=== PATIENT | female | born 1955 | race Caucasian/White ===

== ENCOUNTER 2021-10-23 11:43 | Outpatient (CLI) | payer MEDICAID, SELFPAY ==
[2021-10-23 21:34] LABS: Chloride* 103 mmol/L (96-114); Potassium* 4.9 mmol/L (3.6-5.1); Sodium* 138 mmol/L (135-149)
[2021-10-23 21:36] LABS: Cholesterol* 202 mg/dL (90-199); Creatinine* 0.7 mg/dL (0.5-1.5); Estimated Glomerular Filt Rate 97 ml/min
[2021-10-23 21:37] LABS: Blood Urea Nitrogen* 19 mg/dL (7-30); Calcium* 9.8 mg/dL (8.4-10.6); Carbon Dioxide* 29 mmol/L (20-32); Glucose* 96 mg/dL (60-115); HDL Cholesterol* 69 mg/dL (>=50); LDL Cholesterol Calculated 112 mg/dL (<100); Triglycerides* 104 mg/dL (40-149)
== END 2021-10-23 11:44 | disposition home or self-care (01) ==
PROVIDERS: PCP Family Medicine; Visit Provider Family Medicine
DX: Z00.00 Encounter for general adult medical examination without abnormal findings (principal); I10 Essential (primary) hypertension; Z13.6 Encounter for screening for cardiovascular disorders
CPT/HCPCS: 80048; 80061

== ENCOUNTER 2021-11-08 10:44 | Outpatient (CLI) | payer MEDICAID, SELFPAY | END 2021-11-08 10:45 | disposition home or self-care (01) | LOC: FRMREF 10:44 | PROVIDERS: PCP Family Medicine; Visit Provider Family Medicine | DX: Z12.4 Encounter for screening for malignant neoplasm of cervix (principal) | CPT/HCPCS: 87624; 88175 ==

== ENCOUNTER 2021-11-12 07:21 | Outpatient (CLI) | payer MEDICAID, SELFPAY | END 2021-11-12 07:22 | disposition home or self-care (01) | LOC: OP CLINIC 07:22 | PROVIDERS: PCP Family Medicine; Visit Provider Surgery | DX: Z12.11 Encounter for screening for malignant neoplasm of colon (principal); K57.30 Diverticulosis of large intestine without perforation or abscess without bleeding | CPT/HCPCS: 45378; 99153; J2250; J3010 ==

== ENCOUNTER 2021-11-21 14:44 | Outpatient (CLI) | payer MEDICAID, SELFPAY ==
--- NOTE | 2021-11-21 15:00 | CRLHL7_ITS ---
For Patients: As a result of the Century Cures Act, medical imaging exams and procedure reports are released immediately into your electronic medical record. You may view this report before your referring provider. If you have questions, please contact your health care provider. DXA BONE MINERAL DENSITY STUDY Current height (in): 62. Weight (lb): 110. Menopause age: 55. Ethnicity: White. 1. Have you had a previous hip or vertebral fracture? No. 2. Have you had any fractures during your adult life which did not result from significant trauma (e.g., auto accident)? Yes. 3. Did either of your parents have a hip fracture? No. 4. Do you smoke? Yes. 5. Have you ever taken Glucocorticoids? No. 6. Do you have rheumatoid arthritis? No. 7. Do you have secondary osteoporosis? No. 8. Do you drink 3 or more alcoholic drinks per day? No. 9. Are you being treated for osteoporosis? No. 10. Have you ever taken any of the following medications: Actonel, Evista, Fosamax, Miacalcin, Reclast, Boniva, Forteo, HRT (i.e. estrogen/hormone therapy), Protelos, Prolia, Vitamin D, Calcium, other ??? please specify. ANSWER: No. 11. Do you have any of the following medical conditions: Anorexia or bulimia, asthma or emphysema, end stage renal disease, hyperparathyroidism, any seizure disorders, cancer, inflammatory bowel diseases, hysterectomy, other ??? please specify. ANSWER: No. 12. What was your maximum height (inches)? 62. 13. Do you perform weight bearing exercise regularly? No. 14. Do you regularly consume dairy products? Yes. 15. Do you drink caffeinated beverages? Yes. 16. At what age did your period start? 13. 17. Are you premenopausal? Yes. 18. How many full term pregnancies have you had? 2. 19. Have you ever missed your period for more than 6 months in a row (not including or menopause)? No. TECHNIQUE: Bone mineral density study was performed using the [employer] FINDINGS: The results of the study expressed as bone mineral density (BMD) are as follows: Lumbar spine L1 to L4: BMD: 0.589 g/cm2. T-score: -4.2. Z-score: -2.4 Neck Left: BMD: 0.473 g/cm2. T-score: -3.4. Z-score: -1.9 Right: BMD: 0.495 g/cm2. T-score: -3.2. Z-score: -1.7 Total Left: BMD: 0.577 g/cm2. T-score: -3.0. Z-score: -1.8 Right: BMD: 0.599 g/cm2. T-score: -2.8. Z-score: -1.6 IMPRESSION: Osteoporosis. Husam Urbaon M.D. Diagnostic Radiologist [email or web address] OMID/doni jj/Dictated by: Husam Urbano MD @ 11/22/2021 8:24:00 AM (Electronically Signed)
== END 2021-11-21 14:45 | disposition home or self-care (01) ==
LOC: RAD 14:45
PROVIDERS: PCP Family Medicine; Visit Provider Family Medicine
DX: Z78.0 Asymptomatic menopausal state (principal)
CPT/HCPCS: 77080

== ENCOUNTER 2021-11-28 12:43 | Outpatient (CLI) | payer MEDICAID, SELFPAY ==
--- NOTE | 2021-11-28 13:00 | CRLHL7_ITS ---
For Patients: As a result of the Century Cures Act, medical imaging exams and procedure reports are released immediately into your electronic medical record. You may view this report before your referring provider. If you have questions, please contact your health care provider. BILATERAL SCREENING MAMMOGRAM WITH COMPUTER-AIDED DETECTION AND TOMOSYNTHESIS TECHNIQUE: CC and MLO views were obtained. These mammographic images have been obtained using full-field digital technique. These mammographic images were interpreted with the benefit of computer-aided detection. Breast Tomosynthesis was used in this interpretation. COMPARISON FILM: Priors unavailable from [place]. FINDINGS: The breasts are heterogeneously dense, which may obscure small masses IMPRESSION: There is no radiographic evidence for malignancy. ASSESSMENT: BI-RADS Category 1: Negative RECOMMENDATION: Routine screening mammogram in 1 year. A lay language report of this examination will be provided to the patient. Nikita Petty M.D. Diagnostic/Musculoskeletal Radiologist [email or web address] CHRISTINE/Dictated by: Nikita Petty MD @ 11/30/2021 8:06:00 AM (Electronically Signed)
== END 2021-11-28 12:44 | disposition home or self-care (01) ==
LOC: MAMMO 12:45
PROVIDERS: PCP Family Medicine; Visit Provider Family Medicine
DX: Z12.31 Encounter for screening mammogram for malignant neoplasm of breast (principal); R92.8 Other abnormal and inconclusive findings on diagnostic imaging of breast; R92.2 Inconclusive mammogram
CPT/HCPCS: 77063; 77067

== ENCOUNTER 2023-01-29 11:19 | Outpatient (CLI) | payer MEDICARE, SELFPAY | END 2023-01-29 11:20 | disposition home or self-care (01) | PROVIDERS: PCP Physician Assistant Medical; Visit Provider Physician Assistant Medical | DX: Z00.00 Encounter for general adult medical examination without abnormal findings (principal); Z13.6 Encounter for screening for cardiovascular disorders; Z13.29 Encounter for screening for other suspected endocrine disorder | CPT/HCPCS: 80053; 80061; 84443 ==

== ENCOUNTER 2023-05-01 11:32 | Outpatient (CLI) | payer MEDICARE, SELFPAY ==
--- NOTE | 2023-05-01 11:30 | CRLHL7_ITS ---
For Patients: As a result of the Century Cures Act, medical imaging exams and procedure reports are released immediately into your electronic medical record. You may view this report before your referring provider. If you have questions, please contact your health care provider. BILATERAL SCREENING MAMMOGRAM WITH COMPUTER-AIDED DETECTION AND TOMOSYNTHESIS TECHNIQUE: CC and MLO views were obtained. These mammographic images have been obtained using full-field digital technique. These mammographic images were interpreted with the benefit of computer-aided detection. Breast Tomosynthesis was used in this interpretation. COMPARISON FILM: 11/28/21. FINDINGS: There are scattered areas of fibroglandular density. IMPRESSION: There is no radiographic evidence for malignancy. ASSESSMENT: BI-RADS Category 1: Negative RECOMMENDATION: Routine screening mammogram in 1 year. A lay language report of this examination will be provided to the patient. Husam Urbano M.D. Diagnostic Radiologist [email or web address] SP/Dictated by: Husam Urbano MD @ 05/02/2023 9:48:00 AM (Electronically Signed)
== END 2023-05-01 11:33 | disposition home or self-care (01) ==
PROVIDERS: PCP Physician Assistant Medical; Visit Provider Physician Assistant Medical
DX: Z12.31 Encounter for screening mammogram for malignant neoplasm of breast (principal)
CPT/HCPCS: 77063; 77067

== ENCOUNTER 2024-03-16 10:37 | Outpatient (CLI) | payer MEDICARE, SELFPAY | END 2024-03-16 10:38 | disposition home or self-care (01) | LOC: NFLDREF 03-17 14:29 | PROVIDERS: PCP Physician Assistant Medical; Referring Provider Physician Assistant Medical; Visit Provider Physician Assistant Medical | DX: M81.0 Age-related osteoporosis without current pathological fracture (principal); J44.9 Chronic obstructive pulmonary disease, unspecified; J06.9 Acute upper respiratory infection, unspecified; J41.0 Simple chronic bronchitis; Z78.0 Asymptomatic menopausal state; Z13.6 Encounter for screening for cardiovascular disorders | CPT/HCPCS: 80053; 80061; 84443 ==

== ENCOUNTER 2024-06-23 10:19 | Outpatient (CLI) | payer MEDICARE, SELFPAY ==
--- NOTE | 2024-06-23 10:30 | CRLHL7_ITS ---
For Patients: As a result of the Century Cures Act, medical imaging exams and procedure reports are released immediately into your electronic medical record. You may view this report before your referring provider. If you have questions, please contact your health care provider. DXA BONE MINERAL DENSITY STUDY Current height (in): 62. Weight (lb): 105. Menopause age: 55. Ethnicity: White. 1. Have you had a previous hip or vertebral fracture? No. 2. Have you had any fractures during your adult life which did not result from significant trauma (e.g., auto accident)? Yes. 3. Did either of your parents have a hip fracture? No. 4. Do you smoke? Yes. 5. Have you ever taken Glucocorticoids? No. 6. Do you have rheumatoid arthritis? No. 7. Do you have secondary osteoporosis? Yes. 8. Do you drink 3 or more alcoholic drinks per day? No. 9. Are you being treated for osteoporosis? Yes. 10. Have you ever taken any of the following medications: Yes, Calcium. 11. Do you have any of the following medical conditions: Anorexia or bulimia, asthma or emphysema, end stage renal disease, hyperparathyroidism, any seizure disorders, cancer, inflammatory bowel diseases, hysterectomy, other ??? please specify. No. 12. What was your maximum height (inches)? 62. 13. Do you perform weight bearing exercise regularly? No. 14. Do you regularly consume dairy products? Yes. 15. Do you drink caffeinated beverages? Yes. 16. At what age did your period start? 13. 17. Are you premenopausal? No. 18. How many full term pregnancies have you had? 2. 19. Have you ever missed your period for more than 6 months in a row (not including or menopause)? No. TECHNIQUE: Bone mineral density study was performed using the [employer]. FINDINGS: The results of the study expressed as bone mineral density (BMD) are as follows: Lumbar spine L1 to L4: BMD: 0.647 g/cm2. T-score: -3.6. Z-score: -1.7. Neck Left: BMD: 2.44 g/cm2. T-score: -3.3. Z-score: -1.6. Right: BMD: 2.31 g/cm2. T-score: -3.2. Z-score: -1.5. Total Left: BMD: 0.650 g/cm2. T-score: -2.4. Z-score: -1.0. Right: BMD: 0.610 g/cm2. T-score: -2.7. Z-score: -1.4. IMPRESSION: Osteoporosis. COMPARISON: Compared with scan of 11/05/2021, the bone mineral density has increased by 9.7 percent at the spine and increased by 7.1 percent at the hip. Ramin Conn M.D. Diagnostic Radiologist [email or web address] EDVIN/fernando / DW/Dictated by: Ramin Conn MD @ 06/27/2024 7:36:00 AM (Electronically Signed)
== END 2024-06-23 10:20 | disposition home or self-care (01) ==
LOC: RAD 10:21
PROVIDERS: PCP Physician Assistant Medical; Visit Provider Physician Assistant Medical
DX: Z78.0 Asymptomatic menopausal state (principal); M81.0 Age-related osteoporosis without current pathological fracture
CPT/HCPCS: 77080

== ENCOUNTER 2024-09-27 13:08 | Outpatient (CLI) | payer MEDICARE, SELFPAY ==
--- NOTE | 2024-09-27 13:20 | CRLHL7_ITS ---
For Patients: As a result of the Century Cures Act, medical imaging exams and procedure reports are released immediately into your electronic medical record. You may view this report before your referring provider. If you have questions, please contact your health care provider. BILATERAL DIGITAL SCREENING MAMMOGRAM WITH COMPUTER-AIDED DETECTION AND TOMOSYNTHESIS CLINICAL HISTORY: : Routine screening exam. COMPARISON: 05/01/2023, 11/28/2021 TECHNIQUE: Digital mammogram in CC and MLO projections including computer-aided detection (CAD). Tomosynthesis was used in this interpretation. BREAST COMPOSITION: There are scattered areas of fibroglandular density. FINDINGS: RIGHT Breast: No suspicious findings LEFT Breast: Focal asymmetric density within the lower inner quadrant 3 cm from the nipple. IMPRESSION: LEFT breast asymmetry/mass. RECOMMENDATIONS: Additional mammographic views of the LEFT breast including 3D spot-compression CC/MLO. LEFT breast ultrasound may also be required. The [facility] will contact the patient. A lay language report of this examination will be provided to the patient. BI-RADS Category 0: Incomplete: Need Additional Imaging Evaluation Dictated by Husam Urbano MD @ 09/28/2024 8:26:53 AM Dictated by: Husam Urbano MD @ 09/28/2024 08:27:08 (Electronically Signed)
--- OUTSIDE RECORDS SUMMARY | 2024-09-28 02:05 | XMS_ITS | Clinical Summary ---
Author Organization [facility] Address [address] [place] [id number] Care Team Providers Care Deck And Hull Assembler Name Role Phone No Ref-Primary, Physician Primary Care Provider Allergies No known active allergies Medications ibuprofen (ADVIL/MOTRIN) 200 MG tablet Take 200 mg by mouth every 4 hours as needed for mild pain Active Active Problems Problem Noted Date Diagnosed Date Wrist fracture, left, closed, initial encounter 04/12/2021 Left shoulder pain 04/12/2021 Social History Tobacco Use Types Packs/Day Years Used Date Smoking Tobacco: Every Day Smokeless Tobacco: Never Tobacco Cessation:Ready to Q uit: No; Counseling Given: Yes Alcohol Use Standard Drinks/Week Comments Yes 0 (1 standard drink = 0.6 oz pur e alcohol) Adolescent Education Answer Date Record ed Getting School Help Needed Not on file 12/22 Comments No Sex and Gender Information Value Date Recorded Sex Assigned at Female 04/05/2021 12:57 PM TOOL AND DIE MANAGER Legal Sex Female 3:15 AM TOOL AND DIE MANAGER Gender Identity Female 04/05/2021 12:57 PM TOOL AND DIE MANAGER Sexual Orientation Straight 04/05/2021 12 :57 PM TOOL AND DIE MANAGER Last Filed Vital Signs Vital Sign Reading Time Taken Comments Blood Pressure 128/74 10/17/2021 1:06 PM CDT Pulse 86 03/13/2021 2:14 PM TOOL AND DIE MANAGER Temperature 36.7 C (98 F) 03/09/2021 5:30 PM TOOL AND DIE MANAGER Respiratory Rate 16 03/09/2021 5:30 PM TOOL AND DIE MANAGER Oxygen Saturation 100% 03/09/2021 5:30 PM TOOL AND DIE MANAGER Inhaled Oxygen Concentration - - Weight 50.1 kg (110 lb 6.4 oz) 10/17/2021 1:06 P M CDT Height 157.5 cm (5' 2) 10/17/2021 1:06 PM CDT Body Mass Index 20.19 10/17/2021 1:06 PM CDT Plan of Treatment Health Maintenance Due Date Last Done Comments ADVANCE CARE PLANNING 1955 ANNUAL REVIEW OF HM ORDERS 1956 CT COLONOGRAPHY 1956 DEXA 1956 DIABETES SCREENING 1956 FIT 1956 FLEX SIG 1956 MAMMO SCREENING 1956 sDNA (Cologuard) 1956 COLONOSCOPY 1966 COLORECTAL CANCER SCREENING 1966 HEPATITIS C SCREENING 1974 PNEUMOCOCCAL VACCINE 50+ YEARS (1 of 2 - PCV) 12/03/1975 DTAP/TDAP/TD VACCINE (1 - Tdap) 1981 LIPID 1996 LUNG CANCER SCREENING 2006 ZOSTER VACCINE (1 of 2) 2006 FALL RISK ASSESSMENT 2021 MEDICARE ANNUAL WELLNESS VISIT 2021 COVID-19 VACCINE (3 2023-2 5 season) 2023 03/16/2021, 07/17/2020 PHQ-2 (once per calendar year) 2024 INFLUENZA VACCINE (Season Ended) 2024 01/08/2022, 03/16/2021 RSV VACCINE (1 - 1-dose 75+ series) 12/03/2031 HPV VACCINE Aged Out No longer eligi ble based on patient's age to complete this topic MENINGITIS VACCINE Aged Out No longer eligible based on patient's age to complete this topic Insurance [facility] Care Teams Deck And Hull Assembler Relationship Specialty Start Date End Date No Ref-Primary, Physician PCP - General 07/13/20
--- OUTSIDE RECORDS SUMMARY | 2024-09-28 02:05 | XMS_ITS | Patient Health Record ---
Author Organization [facility] Address [address] [place] [address] Support Name Relationship Address Phone HETAL BAR Guarantor Unknown Reason For Referral No Information Medications Medication SIG (Take, Route, Frequency, Duration) Notes Start Date End Date Status diazePAM one tablet 30 minute s prior to MRI. Repeat if necessary. 09/11/2004 Active Problems Problem Type SNOMED Code ICD Code Onset Dates Problem Status W/U Status Risk Notes Problem Lateral epicondylitis (417843969) Lateral epicondylitis of elbow left (726.32) 10/03/19 05 Active confirmed Joshua Problem Lumbago (956213693) Lumbago (724.2) 09/12/19 05 Active confirmed Joshua Problem Arthralgia of the ankle and/or foot (383176081) Pain ankle and foot (719.47) 09/12/19 05 Active w/u negative Joshua: Reason-R Plan Of Treatment No Information
== END 2024-09-27 13:09 | disposition home or self-care (01) ==
LOC: MAMMO 13:09
PROVIDERS: PCP Physician Assistant Medical; Visit Provider Physician Assistant Medical
DX: Z12.31 Encounter for screening mammogram for malignant neoplasm of breast (principal); N63.20 Unspecified lump in the left breast, unspecified quadrant
CPT/HCPCS: 77063; 77067

== ENCOUNTER 2024-10-07 08:36 | Outpatient (CLI) | payer MEDICARE, SELFPAY ==
--- NOTE | 2024-10-07 08:45 | CRLHL7_ITS ---
For Patients: As a result of the Cures Act, medical imaging exams and procedure reports are released immediately into your electronic medical record. You may view this report before your referring provider. If you have questions, please contact your health care provider. DIGITAL DIAGNOSTIC LEFT MAMMOGRAM USING TOMOSYNTHESIS LEFT BREAST ULTRASOUND CLINICAL HISTORY: LEFT breast mass/asymmetry. COMPARISON: 09/27/2024. TECHNIQUE: Digital LEFT mammogram in two projections. Tomosynthesis was used in this interpretation. Real-time ultrasound imaging of LEFT breast with imaging documentation. Scanning was performed by both the technologist and the radiologist. BREAST COMPOSITION: There are scattered areas of fibroglandular density. FINDINGS: 3D spot compression CC/MLO LEFT breast mammogram images submitted. Decreased conspicuity of previously noted asymmetric density. No architectural distortion. No suspicious calcifications. Targeted LEFT breast ultrasound performed in the lower outer quadrant 4 o`clock 3 cm from the nipple. Normal fibroglandular tissue is present. No fibrocystic change or solid mass. IMPRESSION: No suspicious findings. No evidence of malignancy. RECOMMENDATIONS: Routine screening mammography. A lay language report of this examination will be provided to the patient. BI-RADS Category 2: Benign Dictated by Husam Urbano MD @ 10/07/2024 9:34:41 AM jj/Dictated by: Husam Urbano MD @ 10/07/2024 9:34:00 AM (Electronically Signed)
--- NOTE | 2024-10-07 09:15 | CRLHL7_ITS ---
For Patients: As a result of the Cures Act, medical imaging exams and procedure reports are released immediately into your electronic medical record. You may view this report before your referring provider. If you have questions, please contact your health care provider. SEE LEFT DIGITAL DIAGNOSTIC MAMMOGRAM PERFORMED SAME DAY CRL:doni marion/Dictated by: Husam Urbano MD @ 10/07/2024 9:35:00 AM (Electronically Signed)
== END 2024-10-07 08:37 | disposition home or self-care (01) ==
LOC: MAMMO 08:37
PROVIDERS: PCP Physician Assistant Medical; Visit Provider Physician Assistant Medical
DX: N63.20 Unspecified lump in the left breast, unspecified quadrant (principal); R92.8 Other abnormal and inconclusive findings on diagnostic imaging of breast
CPT/HCPCS: 76642; 77065; G0279